=== PATIENT | female | born 1940 ===

== ENCOUNTER 2019-12-25 08:30 | Outpatient (CLI) | payer MEDICARE, SELFPAY ==
[2019-12-27 09:05] LABS: SARS-CoV-2 RNA Not Detected (NotDetected); SARS-CoV-2 RNA Source Nasal/Nares
== END 2019-12-25 08:50 ==
PROVIDERS: Visit Provider Internal Medicine Sleep Medicine
DX: Z11.59 Encounter for screening for other viral diseases (principal); Z01.818 Encounter for other preprocedural examination
CPT/HCPCS: U0003